=== PATIENT | male | born 1975 | race Caucasian/White ===

== ENCOUNTER → 2019-10-16 | Outpatient (CLI) | payer OTHER | LOC: LB.CLINIC 15:40 | PROVIDERS: ATTEND Family Medicine | DX: I10 Essential (primary) hypertension (principal) | CPT/HCPCS: 36415; 80048 ==

== ENCOUNTER 2024-07-03 07:50 | Emergency (ER) | payer MEDICAID ==
[2024-07-03] MEDS ORDERED: Metoprolol Tartrate 5 MG/5 ML SDV ONE (08:16)
[2024-07-03] MEDS: Metoprolol Tartrate 5 MG/5 ML SDV IVPUSH ONE ×3 (08:24→08:50)
[2024-07-03] MEDS ORDERED: Sodium Chloride 0.9% 10 ML Syringe FLUSH PRN (08:29)
[2024-07-03 08:33] LABS: BASOPHILS ABSOLUTE AUTO 0.02 K/uL (0.02-0.10); BASOPHILS PERCENT AUTO 0.2 % (0.0-0.5); HEMATOCRIT 47.8 % (40.0-54.0); HEMOGLOBIN 15.9 g/dL (13.0-18.0); LYMPHOCYTES ABSOLUTE AUTO 1.98 K/uL (1.50-4.00); LYMPHOCYTES PERCENT AUTO 20.7 % (20.0-40.0); MEAN CORPUSCULAR HEMOGLOBIN 28.6 pg (27.0-32.0); MEAN CORPUSCULAR HGB CONC 33.3 g/dL (31.0-35.0); MEAN CORPUSCULAR VOLUME 86 fL (76-96); MEAN PLATELET VOLUME 10.5 fL (6.0-10.0); MONOCYTES ABSOLUTE AUTO 1.12 K/uL (0.20-0.80); MONOCYTES PERCENT AUTO 11.7 % (3.0-10.0); NEUTROPHILS ABSOLUTE AUTO 6.36 K/uL (2.00-7.50); NEUTROPHILS PERCENT AUTO 66.4 % (45.0-70.0); PLATELET COUNT,PLT 193 K/uL (150-400); RED BLOOD CELL COUNT 5.55 M/uL (4.50-6.50); RED CELL DISTRIBUTION WIDTH 14.4 % (11.0-16.0); WHITE BLOOD CELL COUNT,WBC 9.6 K/uL (4.0-11.0)
[2024-07-03] MEDS: Ondansetron 4 MG/2 ML SDV IVPUSH ONE (08:33)
[2024-07-03] MEDS: Ondansetron 4 MG/2 ML SDV ONE (08:53)
[2024-07-03] MEDS: Metoprolol Tartrate 5 MG/5 ML SDV ONE ×2 (08:53)
[2024-07-03 09:00] LABS: A/G RATIO 0.9 (0.8-2.0); ALBUMIN 3.8 g/dL (3.4-5.0); ANION GAP 13.3 mmol/L (5.0-15.0); BILIRUBIN TOTAL 1.3 mg/dL (0.0-1.0); BUN/CREATININE RATIO 16.3 (6-25); CALCIUM 8.6 mg/dL (8.5-10.1); CARBON DIOXIDE,CO2 30.5 mmol/L (21.0-32.0); CREATININE 1.04 mg/dL (0.70-1.30); EST CRCL DRUG DOSING (CG) 93.27 mL/min; PHOSPHORUS 2.2 mg/dL (2.5-4.9); POTASSIUM,K 3.8 mmol/L (3.5-5.1); PROTEIN TOTAL,TP 7.8 g/dL (6.4-8.2)
[2024-07-03 09:06] LABS: TROPONIN I HIGH SENSITIVITY 11.8 pg/ml (<=60.4)
[2024-07-03 09:29] LABS: INFLUENZA A NAA NEGATIVE (NEGATIVE); INFLUENZA B NAA NEGATIVE (NEGATIVE); RESPIRATORY SYNCYTIAL VIR NAA NEGATIVE (NEGATIVE)
[2024-07-03 09:35] LABS: CORONAVIRUS COVID-19 NAA NEGATIVE (NEGATIVE)
[2024-07-03] MEDS: Amiodarone 150 MG in Dextrose 5% in Water 100 ML IV SCH ×2 (10:14→12:17)
[2024-07-03] MEDS: Amiodarone 450 MG in Dextrose 5% in Water 250 ML IV SCH (10:54)
[2024-07-03] MEDS ORDERED: Ondansetron 4 MG/2 ML SDV IV PRN (11:35)
[2024-07-03] MEDS ORDERED: Amiodarone 150 MG in Dextrose 5% in Water 100 ML IV SCH (12:00)
[2024-07-03] MEDS: Diltiazem 25 MG/5 ML SDV IVPUSH ONE (16:48)
[2024-07-03] MEDS: Furosemide 20 MG/2 ML VIAL IVPUSH ONE (18:42)
[2024-07-03] MEDS: Diltiazem 100 MG in Sodium Chloride 0.9% 100 ML IV SCH (19:08)
[2024-07-03] MEDS: Digoxin 500 MCG/2 ML Amp IVPUSH ONE (22:24)
[2024-07-03] MEDS: Diltiazem IR 60 MG Tab PO SCH (22:28)
[2024-07-03] MEDS: Heparin Sodium/D5W 25,000 UNITS/500 ML BAG IV SCH (22:53)
[2024-07-04] MEDS ORDERED: Diltiazem IR 60 MG Tab PO SCH
[2024-07-04] MEDS: Acetaminophen 325 MG Tab PO PRN (03:32)
[2024-07-04] MEDS: Digoxin 500 MCG/2 ML Amp IVPUSH ONE (03:33)
[2024-07-04 08:17] LABS: HEMATOCRIT 44.7 % (40.0-54.0); HEMOGLOBIN 14.7 g/dL (13.0-18.0); MEAN CORPUSCULAR HEMOGLOBIN 28.2 pg (27.0-32.0); MEAN CORPUSCULAR HGB CONC 32.9 g/dL (31.0-35.0); MEAN PLATELET VOLUME 11.9 fL (6.0-10.0); RED BLOOD CELL COUNT 5.21 M/uL (4.50-6.50); RED CELL DISTRIBUTION WIDTH 14.3 % (11.0-16.0); WHITE BLOOD CELL COUNT,WBC 8.2 K/uL (4.0-11.0)
[2024-07-04 08:32] LABS: ANION GAP 13.7 mmol/L (5.0-15.0); BUN/CREATININE RATIO 15.1 (6-25); CALCIUM 8.3 mg/dL (8.5-10.1); CARBON DIOXIDE,CO2 27.1 mmol/L (21.0-32.0); CREATININE 0.86 mg/dL (0.70-1.30); EST CRCL DRUG DOSING (CG) 112.79 mL/min; POTASSIUM,K 3.8 mmol/L (3.5-5.1)
[2024-07-04] MEDS: Amiodarone 450 MG in Dextrose 5% in Water 250 ML IV SCH (14:03)
[2024-07-04] MEDS: Heparin Sodium 5,000 Units/ML Vial IVPUSH ONE (20:19)
[2024-07-05] MEDS: Digoxin 500 MCG/2 ML Amp IVPUSH ONE (00:28)
[2024-07-05 06:05] VITALS: BP 149/91; PULSE 60
== END 2024-07-05 05:55 ==
LOC: LB.ED 07:50 → LB.MS 10:37 → UNDOADMOB 10:37
PROVIDERS: ADMIT Nurse Practitioner Family; ATTEND Nurse Practitioner Family
DX: I48.91 Unspecified atrial fibrillation (principal); I10 Essential (primary) hypertension; E66.9 Obesity, unspecified; Z90.49 Acquired absence of other specified parts of digestive tract; Z79.899 Other long term (current) drug therapy; Z88.0 Allergy status to penicillin; Z68.42 Body mass index [BMI] 45.0-49.9, adult
CPT/HCPCS: 0241U; 36415; 71045; 80048; 80053; 83735; 83880; 84100; 84484; 85025; 85027; 85730; 93005; 93010; 96365; 96366; 96368; 96375; 96376; 99222; 99231; 99238; 99285-25; A9270-GY; G0378; J0282; J1160; J1644; J1940; J2405; J3490; J7060

== ENCOUNTER 2024-09-13 02:15 | Emergency (ER) | payer MEDICAID ==
[2024-09-13] MEDS: Aspirin 81 MG Tab.Chew PO ONE (02:32)
[2024-09-13] MEDS: Sodium Chloride 0.9% 10 ML Syringe FLUSH PRN (02:38)
[2024-09-13 03:09] LABS: BASOPHILS ABSOLUTE AUTO 0.03 K/uL (0.02-0.10); BASOPHILS PERCENT AUTO 0.3 % (0.0-0.5); EOSINOPHILS PERCENT AUTO 0.9 % (1.0-5.0); HEMOGLOBIN 13.6 g/dL (13.0-18.0); LYMPHOCYTES ABSOLUTE AUTO 1.79 K/uL (1.50-4.00); MEAN CORPUSCULAR VOLUME 88 fL (76-96); MEAN PLATELET VOLUME 10.5 fL (6.0-10.0); MONOCYTES ABSOLUTE AUTO 0.86 K/uL (0.20-0.80); MONOCYTES PERCENT AUTO 8.2 % (3.0-10.0); NEUTROPHILS ABSOLUTE AUTO 7.76 K/uL (2.00-7.50); NEUTROPHILS PERCENT AUTO 73.6 % (45.0-70.0); PLATELET COUNT,PLT 166 K/uL (150-400); RED BLOOD CELL COUNT 4.54 M/uL (4.50-6.50); RED CELL DISTRIBUTION WIDTH 14.9 % (11.0-16.0); WHITE BLOOD CELL COUNT,WBC 10.5 K/uL (4.0-11.0)
[2024-09-13 03:21] LABS: A/G RATIO 1.1 (0.8-2.0); ALBUMIN 3.4 g/dL (3.4-5.0); ANION GAP 13.6 mmol/L (5.0-15.0); BILIRUBIN TOTAL 1.1 mg/dL (0.0-1.0); BUN/CREATININE RATIO 19.2 (6-25); CALCIUM 8.6 mg/dL (8.5-10.1); CARBON DIOXIDE,CO2 26.3 mmol/L (21.0-32.0); CREATININE 0.73 mg/dL (0.70-1.30); EST CRCL DRUG DOSING (CG) 132.88 mL/min; POTASSIUM,K 3.9 mmol/L (3.5-5.1); PROTEIN TOTAL,TP 6.6 g/dL (6.4-8.2)
[2024-09-13 03:26] LABS: TROPONIN I HIGH SENSITIVITY 5.1 pg/ml (<=60.4)
[2024-09-13 03:29] LABS: INR 1.1 (1.0-3.5); PTT,PARTIAL THROMBOPLSTIN TIME 49.2 SECONDS (24.4-33.2)
[2024-09-13 03:31] LABS: PROTHROMBIN TIME 11.3 sec (9.0-11.5)
[2024-09-13 04:12] VITALS: BP 135/87; PULSE 57
== END 2024-09-13 04:00 | disposition home or self-care (01) ==
LOC: LB.ED 02:15
DX: R07.89 Other chest pain (principal); I10 Essential (primary) hypertension; E66.9 Obesity, unspecified; Z68.41 Body mass index [BMI] 40.0-44.9, adult; Z90.49 Acquired absence of other specified parts of digestive tract; Z79.899 Other long term (current) drug therapy; Z88.0 Allergy status to penicillin
CPT/HCPCS: 36415; 71045; 71250; 80053; 83735; 84484; 85025; 85379; 85610; 85730; 93005; 93010; 99284; 99285; A9270-GY; J3490